=== PATIENT | female | born 1985 | race African-American/Black ===

== ENCOUNTER 2016-06-12 12:56 | Observation (INO) | payer OTHER ==
[~2016-06-12] VITALS: Ht 162.6 cm; Wt 73.5 kg
--- NOTE | 2016-06-12 13:13 | Emergency Room Report ---
History of Present Illness General Chief Complaint: Abdominal Pain Source: Patient Present Illness HPI Patient presents emergency department today complaining of abdominal discomfort. Patient states that she has a history of gallstones and went to see her surgeon for evaluation and possible surgery. But she develop worsening pelvic pain and was sent here for further evaluation by general surgery. She denies any fever. She does complain of some epigastric discomfort eversion chills sensation. Denies any vomiting. States that she does have dysuria and suprapubic discomfort.No other modifying factors. No other associated signs and symptoms. No other complaints were noted. Symptoms noted to be moderate. Allergies: Uncoded Allergies: CYANOCOBALAMIN (Allergy, Unknown, 06/12/16) VITAMIN B12 (Allergy, Unknown, 06/12/16) Patient History Past Medical History: other - colitis, gallstones Past Surgical History: Pertinent Family History: none Social History: Denies: alcohol use, drug use, smoking Last Menstrual Period: 05/14/2016 Reviewed Nursing Documentation: PMH: Agreed, PSxH: Agreed Nursing Documentation-PMH Past Medical History: No History, Except For Hx Gastrointestinal Problems: Yes - Colitis, gallstone History Of Psychiatric Problem: Yes - Bipolar Review of Systems All Other Systems: negative except mentioned in HPI Physical Exam Vital Signs Date Time Temp Pulse Resp B/P Pulse Ox O2 Delivery O2 Flow Rate FiO2 06/12/16 12:51 97.7 91 14 112/70 100 Room Air Sp02 EP Interpretation: reviewed, normal General Appearance: alert, moderate distress Head: atraumatic ENT: normal ENT inspection, hearing grossly normal, normal voice Neck: normal inspection, full range of motion, supple, no bony tend Respiratory: normal inspection, lungs clear, normal breath sounds, no respiratory distress, no retraction, no wheezing Cardiovascular #1: regular rate, rhythm, no edema Gastrointestinal: normal inspection, normal bowel sounds, soft, no guarding, no hernia, other - tender suprapubic Genitourinary: no CVA tenderness Musculoskeletal: normal inspection, back normal, normal range of motion Neurologic: normal inspection, alert, responsive, speech normal Psychiatric: anxious Skin: normal inspection, normal color, no rash Medical Decision Making Diagnostic Impression: Primary Impression: Pelvic pain ER Course Patient presents to the emergency department today complaining of pelvic pain. Differential diagnoses include acute ruptured ovarian cysts, ectopic , ovarian torsion, dysfunctional uterine bleeding, ovarian mass just to name a few.Given the severity of the patient's presentation I felt this is a highly complex patient. This patient required extensive workup. I will sign this case out to Dr. Gomez for final disposition. Last Vital Signs Date Time Temp Pulse Resp B/P Pulse Ox O2 Delivery O2 Flow Rate FiO2 06/12/16 12:51 97.7 91 14 112/70 100 Room Air SANDY CARDENAS M.D. Jun 12, 2016 13:13
[2016-06-12] MEDS ORDERED: Morphine Sulfate 4mg/ml Inj IVP ONE (13:15)
[2016-06-12 13:31] LABS: BASOPHILS % (AUTO) 1.4 % (0.0-2.0); EOSINOPHILS % (AUTO) 2.1 % (0.0-3.0); LYMPHOCYTES % (AUTO) 38.3 % (20.0-45.0); MEAN CORPUSCULAR HEMOGLOBIN 30.1 PG (27.0-31.0); MEAN CORPUSCULAR HGB CONC 32.9 G/DL (32.0-36.0); MEAN CORPUSCULAR VOLUME 92 FL (80-99); MEAN PLATELET VOLUME 7.2 FL (6.5-10.1); MONOCYTES % (AUTO) 5.1 % (1.0-10.0); NEUTROPHILS % (AUTO) 53.1 % (45.0-75.0); PLATELET COUNT 268 K/UL (150-450); RED BLOOD COUNT 4.36 M/UL (4.20-5.40); RED CELL DISTRIBUTION WIDTH 13.3 % (11.6-14.8); WHITE BLOOD COUNT 8.3 K/UL (4.8-10.8)
[2016-06-12 13:35] LABS: APPEARANCE,URINE CLEAR; KETONES,URINE NEGATIVE (NEGATIVE); LEUKOCYTE ESTERASE ,URINE NEGATIVE (NEGATIVE); NITRITE,URINE NEGATIVE (NEGATIVE); PH,URINE 7 (4.5-8.0); PROTEIN,URINE NEGATIVE (NEGATIVE); UROBILINOGEN,URINE NORMAL MG/DL (0.0-1.0)
[2016-06-12 13:50] LABS: ALANINE AMINOTRANSFERASE 9 U/L (3-33); ALBUMIN/GLOBULIN RATIO 1.5 (1.0-2.7); ANION GAP 17 (5-15); ASPARTATE AMINO TRANSFERASE 11 U/L (5-40); CALCIUM 8.8 mg/dL (8.6-10.2); CARBON DIOXIDE 21 mEQ/L (20-30); CHLORIDE 99 mEQ/L (98-107); CREATININE 0.7 mg/dL (0.5-0.9); GLOMERULAR FILTRATION RATE > 60 mL/min (>60); HEMOLYSIS 9; LIPASE 21 U/L (< 60); POTASSIUM 4.2 mEQ/L (3.4-4.9); SODIUM 137 mEQ/L (135-145); TOTAL PROTEIN 6.6 g/dL (6.6-8.7)
[2016-06-12 14:00] VITALS: BP 130/81
--- NOTE | 2016-06-12 14:51 | Diagnostic Imaging Report ---
Clinical Indication: PAIN abdominal discomfort, worsening pelvic pain, dysuria, suprapubic discomfort Technique: No oral contrast utilized, per emergency room physician request IV administration nonionic contrast. Venous phase spiral acquisition obtained through the abdomen and pelvis. Multiplanar reconstructions were generated. Total dose length product a 64 mGycm. CTDIvol(s) 16 mGy. Dose reduction achieved using automated exposure control Comparison: None Findings: Lack of oral contrast severely limits evaluation of the GI tract There is a cystic mass within the pelvis, the largest component of which is in the right-sided pelvis posterolateral to the uterus within the right adnexal region which measures approximately 9 x 4 cm, possibly crossing the midline and communicating with a component to the left of the uterus. This demonstrates a perceptible wall There there are what appear to be other thickwalled cystic locules, but these may actually be adherent loops of unopacified small bowel. There is slight hazy infiltration of the pelvic and lower abdominal fat surrounding and cephalad to the lesion. The appendix is normal. There is no evidence of diverticulosis or diverticulitis. No small bowel distention. No free intraperitoneal air or fluid. The distal esophagus, stomach, duodenum are unremarkable. The gallbladder is nondistended. No radiopaque calculi are demonstrated, but there are several rounded structures that are isoattenuating of fluid and may represent radiolucent calculi. Is also suggestion of slight gallbladder wall edema No biliary ductal dilatation. The liver demonstrates a 19 mm low attenuating mass at the boundary of segment 7 and 8 near the hepatic venous confluence which demonstrates a single focus of nodular peripheral enhancement. There is a tiny subcentimeter low-attenuation lesion at the dome of segment 8. The pancreas, spleen, adrenals, kidneys are unremarkable. No mesenteric or retroperitoneal mass or adenopathy. The bladder is unremarkable. The included lung bases are clear. The bones are unremarkable. Impression: Complex cystic lesion in the pelvis, primarily posterior and to the right of the uterus, possibly also communicating with a tubular area extending across the midline. Uncertain as to whether this is unilocular or multilocular, as there are multiple adjacent fluid-filled areas that appear to be locules but could very well just be unopacified fluid-filled small bowel loops. Consider repeat exam with full oral contrast preparation to clarify. There is also some infiltration of the adjacent upper pelvic and lower mesenteric root fat. Suspect findings represent a tubo-ovarian abscess. Also in the differential is cystic ovarian neoplasm. Consider pelvic ultrasound to further characterize Nondistended gallbladder. No definite radiopaque calculi. There is a suggestion of multiple rounded structures which are isoattenuating fluid, may represent radiolucent calculi. There is also questionable gallbladder wall edema. Consider abdominal ultrasound for better characterization 19 mm hypoattenuating lesion in the dome of the right hepatic lobe. Single focus of peripheral nodular enhancement raises possibility that this is a benign hemangioma, but this cannot be stated with certainty. Consider MRI or CT with hemangioma protocol to clarify Subcentimeter lesion within the dome of the liver, too small to characterize, most likely a benign simple cyst or bile hamartomas. No further followup necessary The CT scanner at [facility] is accredited by the [employer] and the scans are performed using protocols designed to limit radiation exposure to as low as reasonably achievable to attain images of sufficient resolution adequate for diagnostic evaluation.
[2016-06-12] MEDS ORDERED: Ketorolac 30mg Inj IV ONE (15:45)
[2016-06-12] MEDS ORDERED: NORCO 5-325 TA1 EACH ORAL (15:51)
[2016-06-12 16:00] VITALS: BP 108/65
[2016-06-12] MEDS ORDERED: Tubing IV Cassette IV ONE ×2 (17:29→18:27)
[2016-06-12] MEDS ORDERED: NS 55 ML IV ONE ×2 (17:29→18:27)
[2016-06-12] MEDS ORDERED: cefTRIAXone 1 GM in NS 55 ML IVPB ONE (17:30)
[2016-06-12 18:15] VITALS: BP 112/70
[2016-06-12] MEDS ORDERED: DiphenhydrAMINE 50mg/ml Inj ONE (18:27)
[2016-06-12] MEDS ORDERED: HYDROmorphone 1mg/ml Carpuject ONE (18:27)
[2016-06-12] MEDS ORDERED: HYDROmorphone 1 MG, DiphenhydrAMINE 25 MG in NS 55 ML IVPB ONE (18:30)
[2016-06-12 20:27] VITALS: BP 105/56
[2016-06-12] MEDS: HYDROmorphone 1mg/ml Carpuject IVP PRN (21:16)
[2016-06-12] MEDS: Piperacillin/Tazobactam 3.375 GM in D5W 110 ML IVPB SCH (21:16)
[2016-06-13] VITALS: BP 106/66
[2016-06-13] MEDS: HYDROmorphone 1mg/ml Carpuject IVP PRN ×4 (02:30→15:24)
[2016-06-13 03:55] VITALS: BP 99/56
[2016-06-13] MEDS: Piperacillin/Tazobactam 3.375 GM in D5W 110 ML IVPB SCH ×2 (05:23→14:03)
[2016-06-13 06:01] VITALS: BP 110/69
[2016-06-13 07:16] LABS: ANION GAP 11 (5-15); CALCIUM 8.4 mg/dL (8.6-10.2); CARBON DIOXIDE 26 mEQ/L (20-30); CHLORIDE 102 mEQ/L (98-107); CREATININE 0.6 mg/dL (0.5-0.9); GLOMERULAR FILTRATION RATE > 60 mL/min (>60); HEMOLYSIS 5; POTASSIUM 4.1 mEQ/L (3.4-4.9); SODIUM 139 mEQ/L (135-145)
[2016-06-13 07:35] LABS: BASOPHILS % (AUTO) 1.3 % (0.0-2.0); LYMPHOCYTES % (AUTO) 42.7 % (20.0-45.0); MEAN CORPUSCULAR HEMOGLOBIN 30.8 PG (27.0-31.0); MEAN CORPUSCULAR HGB CONC 32.9 G/DL (32.0-36.0); MEAN CORPUSCULAR VOLUME 94 FL (80-99); MEAN PLATELET VOLUME 6.9 FL (6.5-10.1); MONOCYTES % (AUTO) 6.1 % (1.0-10.0); NEUTROPHILS % (AUTO) 46.8 % (45.0-75.0); PLATELET COUNT 224 K/UL (150-450); RED BLOOD COUNT 4.13 M/UL (4.20-5.40); RED CELL DISTRIBUTION WIDTH 13.3 % (11.6-14.8); WHITE BLOOD COUNT 6.9 K/UL (4.8-10.8)
[2016-06-13 08:21] VITALS: BP 125/79
--- NOTE | 2016-06-13 10:38 | Diagnostic Imaging Report ---
Indications: Pelvic pain, LMP unknown or not given Technique: Transabdominal and transvaginal real-time grayscale and duplex Doppler imaging of the pelvis was performed. Findings: Comparison: CT abdomen pelvis earlier today Uterus measures 8.6 x 5.3 x 4.5cm. It demonstrates normal contour and myometrial echotexture without focal abnormality. The endometrial complex measures 11 mm in diameter. It is unremarkable in appearance without obvious focal abnormality. Cervix unremarkable. Minimal free fluid is present in the cul-de-sac. Right ovary measures 3.1 x 1.8 x 3.1 cm. it contains multiple peripheral follicles. Duplex Doppler imaging demonstrates normal blood flow. Complex, multiseptated cystic structure resides adjacent to the right ovary, 5.2 x 4.6 x 8.3 cm. It demonstrates no intrinsic blood flow on color Doppler imaging. Left ovary measures 4.2 x 3.3 x 1.9 cm. It contains multiple peripheral follicles.. Duplex Doppler imaging demonstrates normal blood flow. No extra-ovarian abnormality is seen. IMPRESSION: 8.3 cm complex, multiseptated cystic structure adjacent to right ovary, nonspecific. Diagnostic possibilities include physiologic paraovarian cyst, hydro/hemato/pyosalpinx, tubo-ovarian abscess, less likely ectopic , endometrioma, neoplasm. Correlate with serial serum quantitative beta hCG levels. Minimal pelvic free fluid, nonspecific, may be secondary to leak of above Unremarkable uterus, left ovary
[2016-06-13 12:21] VITALS: BP 112/72
--- NOTE | 2016-06-13 14:39 | Emergency Room Report ---
History of Present Illness General Chief Complaint: Abdominal Pain Source: Patient Present Illness Allergies: Coded Allergies: CYANOCOBALAMIN (VITAMIN B12) (Unverified Allergy, Unknown, 06/12/16) Uncoded Allergies: CYANOCOBALAMIN (Allergy, Unknown, 06/12/16) VITAMIN B12 (Allergy, Unknown, 06/12/16) Patient History Last Menstrual Period: 05/14/2016 Nursing Documentation-PM Past Medical History: No History, Except For Hx Hypertension: Yes Hx Asthma: Yes Hx Cancer: No Hx Gastrointestinal Problems: Yes - Colitis, gallstone History Of Psychiatric Problem: Yes - Bipolar Hx Neurological Problems: No Physical Exam Vital Signs Date Time Temp Pulse Resp B/P Pulse Ox O2 Delivery O2 Flow Rate FiO2 06/12/16 12:51 97.7 91 14 112/70 100 Room Air Medical Decision Making Diagnostic Impression: Primary Impression: Pelvic pain Additional Impressions: Complex ovarian cyst TOA (tubo-ovarian abscess) ER Course Please refer to the initial note for the history exam and presentation Initial CT does not reveal any obvious appendicitis however there is significant ovarian mass and cyst noted There was also a concern of findings for tubo-ovarian abscess Ultrasound have been ordered please note the delay in ultrasound There was apparently a procedure being performed Patient required multiple repeat pain medications in the emergency room Given the CAT scan findings [facility] was contacted and patient required admission Labs Test 06/12/16 13:10 06/13/16 05:30 White Blood Count 8.3 K/UL (4.8-10.8) 6.9 K/UL (4.8-10.8) Red Blood Count 4.36 M/UL (4.20-5.40) 4.13 M/UL (4.20-5.40) Hemoglobin 13.1 G/DL (12.0-16.0) 12.7 G/DL (12.0-16.0) Hematocrit 40.0 % (37.0-47.0) 38.7 % (37.0-47.0) Mean Corpuscular Volume 92 FL (80-99) 94 FL (80-99) Mean Corpuscular Hemoglobin 30.1 PG (27.0-31.0) 30.8 PG (27.0-31.0) Mean Corpuscular Hemoglobin Concent 32.9 G/DL (32.0-36.0) 32.9 G/DL (32.0-36.0) Red Cell Distribution Width 13.3 % (11.6-14.8) 13.3 % (11.6-14.8) Platelet Count 268 K/UL (150-450) 224 K/UL (150-450) Mean Platelet Volume 7.2 FL (6.5-10.1) 6.9 FL (6.5-10.1) Neutrophils (%) (Auto) 53.1 % (45.0-75.0) 46.8 % (45.0-75.0) Lymphocytes (%) (Auto) 38.3 % (20.0-45.0) 42.7 % (20.0-45.0) Monocytes (%) (Auto) 5.1 % (1.0-10.0) 6.1 % (1.0-10.0) Eosinophils (%) (Auto) 2.1 % (0.0-3.0) 3.0 % (0.0-3.0) Basophils (%) (Auto) 1.4 % (0.0-2.0) 1.3 % (0.0-2.0) Urine Color Pale yellow Urine Appearance Clear Urine pH 7 (4.5-8.0) Urine Specific [place] 1.005 (1.005-1.035) Urine Protein Negative (NEGATIVE) Urine Glucose (UA) Negative (NEGATIVE) Urine Ketones Negative (NEGATIVE) Urine Occult Blood Negative (NEGATIVE) Urine Nitrite Negative (NEGATIVE) Urine Bilirubin Negative (NEGATIVE) Urine Urobilinogen Normal MG/DL (0.0-1.0) Urine Leukocyte Esterase Negative (NEGATIVE) Urine HCG, Qualitative Negative Sodium Level 137 mEQ/L (135-145) 139 mEQ/L (135-145) Potassium Level 4.2 mEQ/L (3.4-4.9) 4.1 mEQ/L (3.4-4.9) Chloride Level 99 mEQ/L (98-107) 102 mEQ/L (98-107) Carbon Dioxide Level 21 mEQ/L (20-30) 26 mEQ/L (20-30) Anion Gap 17 (5-15) 11 (5-15) Blood Urea Nitrogen 7 mg/dL (7-23) 6 mg/dL (7-23) Creatinine 0.7 mg/dL (0.5-0.9) 0.6 mg/dL (0.5-0.9) Estimat Glomerular Filtration Rate > 60 mL/min (>60) > 60 mL/min (>60) Glucose Level 102 mg/dL (74-106) 74 mg/dL (74-106) Calcium Level 8.8 mg/dL (8.6-10.2) 8.4 mg/dL (8.6-10.2) Total Bilirubin 0.6 mg/dL (0.0-1.2) Aspartate Amino Transf (AST/SGOT) 11 U/L (5-40) Alanine Aminotransferase (ALT/SGPT) 9 U/L (3-33) Alkaline Phosphatase 60 U/L (35-104) Total Protein 6.6 g/dL (6.6-8.7) Albumin 4.0 g/dL (3.5-5.2) Globulin 2.6 g/dL Albumin/Globulin Ratio 1.5 (1.0-2.7) Lipase 21 U/L (< 60) CT/MRI/US Diagnostic Results CT/MRI/US Diagnostic Results : Impression CT abdomen pelvisImpression: Complex cystic lesion in the pelvis, primarily posterior and to the right of the uterus, possibly also communicating with a tubular area extending across the midline. Uncertain as to whether this is unilocular or multilocular, as there are multiple adjacent fluid-filled areas that appear to be locules but could very well just be unopacified fluid-filled small bowel loops. Consider repeat exam with full oral contrast preparation to clarify. There is also some infiltration of the adjacent upper pelvic and lower mesenteric root fat. Suspect findings represent a tubo-ovarian abscess. Also in the differential is cystic ovarian neoplasm. Consider pelvic ultrasound to further characterize Nondistended gallbladder. No definite radiopaque calculi. There is a suggestion of multiple rounded structures which are isoattenuating fluid, may represent radiolucent calculi. There is also questionable gallbladder wall edema. Consider abdominal ultrasound for better characterization 19 mm hypoattenuating lesion in the dome of the right hepatic lobe. Single focus of peripheral nodular enhancement raises possibility that this is a benign hemangioma, but this cannot be stated with certainty. Consider MRI or CT with hemangioma protocol to clarify Subcentimeter lesion within the dome of the liver, too small to characterize, most likely a benign simple cyst or bile hamartomas. No further followup necessary pelvic ultrasoundIMPRESSION: 8.3 cm complex, multiseptated cystic structure adjacent to right ovary, nonspecific. Diagnostic possibilities include physiologic paraovarian cyst, hydro/hemato/pyosalpinx, tubo-ovarian abscess, less likely ectopic , endometrioma, neoplasm. Correlate with serial serum quantitative beta hCG levels. Minimal pelvic free fluid, nonspecific, may be secondary to leak of above Unremarkable uterus, left ovary Last Vital Signs Date Time Temp Pulse Resp B/P Pulse Ox O2 Delivery O2 Flow Rate FiO2 06/13/16 12:21 97.3 63 20 112/72 99 Room Air Status: improved Disposition: ADMITTED INPATIENT Condition: Serious Referrals: NON PHYSICIAN (PCP) GRACIELA SUGGS D.O. Jun 13, 2016 14:39
[2016-06-13 16:11] VITALS: BP 111/68
[2016-06-13] MEDS ORDERED: DIFLUCAN150 MG PO (16:29)
[2016-06-13] MEDS ORDERED: DOXY 100100 MG PO (16:29)
[2016-06-13] MEDS ORDERED: Tubing IV Secondary IV ONE (17:39)
--- NOTE | 2016-06-13 23:58 | History and Physical Report ---
DATE OF ADMISSION: 06/12/2016 HISTORY OF PRESENT ILLNESS: This is a young female, who came to the hospital with some discomfort. She has a history of cholelithiasis. She had worsening of the pain. She was seen in the emergency room and admitted to the hospital with a diagnosis of possible tubo-ovarian abscess. PAST MEDICAL HISTORY: , colitis, and cholelithiasis. ALLERGIES: Listed to cyanocobalamin, vitamin B12, . REVIEW OF SYSTEMS: Denies any headaches, hematemesis, or melena. PHYSICAL EXAMINATION: GENERAL: Reveals a young female. VITAL SIGNS: Blood pressure is 120/70, heart rate 94, respirations , she is afebrile. HEENT: Unremarkable. CHEST: Clear breath sounds bilaterally. ABDOMEN: Soft. EXTREMITIES: There is no edema. NEUROLOGIC: Nonfocal . LABORATORY AND DIAGNOSTIC DATA: Lab testing shows normal CBC and BMP. Urinalysis is negative. IMPRESSION: 1. Bipolar disorder. 2. Previous section. 3. History of colitis. 4. History of cholelithiasis. DISCUSSION: I suspect her pain may represent PID. . We will discharge home today on p.o. Diflucan and doxycycline. follow up. George Peoples M.D. DR: Melissa JOB#: [id number] CC:
--- NOTE | 2016-06-14 11:48 | Consultation ---
DATE OF CONSULTATION: 06/13/2016 HISTORY OF PRESENT ILLNESS: The patient is a 31-year-old who was admitted through the emergency room with a chief complaint of low abdominal pain. Her last menstrual period on 05/11/2016. Today, the patient complaining of low abdominal pain, but much less than on admission. She also feels some nausea, but she denies vomiting. She was having normal bowel movement and no problems with urination. GYNECOLOGICAL HISTORY: Menarche age 14, 4 to 5 days. She denies pelvic inflammatory disease. She denies STD. She was with two children. PREVIOUS MEDICAL HISTORY: Include cholelithiasis and colitis. HOSPITALIZATION FOR SURGERY: Delivery. SOCIAL HISTORY: She does not smoke. Alcohol occasionally. REVIEW OF SYSTEMS: Noncontributory. PHYSICAL EXAMINATION: GENERAL: Revealed a well-developed and well-nourished female, in no acute distress. VITAL SIGNS: Stable. Blood pressure 110/50, respirations 16, and temperature 96.8. HEENT: Head normocephalic and atraumatic. SKIN: Normal color. No visible lesions on the skin. NECK: Supple without thyromegaly. BREASTS: Nontender. No masses appreciated. Nipples without discharge. ABDOMEN: Soft. Tenderness over lower quadrant, but rebound tenderness negative. BACK: Costovertebral angle nontender. EXTREMITIES: No edema. No erythema. PELVIC: Revealed [place] urethral, [place] glands within normal limits. Vulva, no lesions. Vagina, normal developed, no lesions. Cervix closed. Uterus retroflexed. Adnexa, tender on the right with a pelvic mass on the right approximately 8 cm and on the left mild tenderness. Uterus retroflexed and normal size. LABORATORY DATA: Her WBC today 6.9, hemoglobin 12.7, hematocrit 38.7. Her electrolytes normal. Her urine test is negative. Her CT scan revealed presence of the right adnexal mass approximately 8.3 cm. It is a complex multifaceted structure. No intrinsic blood flow on color Doppler imaging. Right ovary, normal size. Left ovary as well normal size and both ovaries was good. Normal blood flow on duplex Doppler. The same finding on vaginal ultrasound and uterus normal size on ultrasound without abnormalities. IMPRESSION: 1. Pelvic mass. 2. Abdominal pain. DIFFERENTIAL DIAGNOSES: 1. Tubo-ovarian abscess. 2. Physiologic . 3. Endometrioma. 4. Neoplasm. PLAN: Continue treatment with antibiotics, and considering patient's stable condition she can be placed on oral antibiotic doxycycline 100 mg twice a day for 10 days and Diflucan 150 mg #2 q. 72 hours. She has to make an appointment with Gynecology, . and will be under his close observation and treatment. Farzana Irving M.D. DR: ASHLEY JOB#: [id number] CC:
--- NOTE | 2016-06-14 19:36 | Discharge Summary ---
Discharge Summary Hospital Course Date of Admission Jun 12, 2016 at 17:37 Date of Discharge Jun 13, 2016 at 17:40 Admitting Diagnosis complex ovarian cyst JONNIE Abdi is a 31 year old female who was admitted on Jun 12, 2016 at 17: 37 for Complex Ovarian Cyst Hospital Course [id number] Discharge Discharge Disposition Patient was discharged to Home (01) Discharge Diagnoses: Niharika Erickson NP Jun 14, 2016 19:36
--- NOTE | 2016-06-15 12:07 | Discharge Summary 2 SIG ---
DATE OF ADMISSION: 06/12/2016 DATE OF DISCHARGE: 06/13/2016 [employer] OPERATOR: Farzana Irving M.D. BRIEF HOSPITAL COURSE: The patient is a 31-year-old female, who came to the hospital for abdominal discomfort. She has history of cholelithiasis and has had worsening abdominal pain. She was seen in the emergency room and admitted with diagnosis of possible tubo-ovarian abscess. Dr. Irving was consulted. Last menstrual period was on 05/11/2016 and had some nausea, but denied vomiting. There was no dysuria and no problems with bowels. Pelvic examination showed vagina was normal developed with no lesions. Cervix is closed. Uterus is retroflexed. Adnexa tender on the right with pelvic mass on the right approximately 8 cm on the left mild tenderness. Hemoglobin is 6.9. Urine test was negative. CT scan revealed presence of right adnexal mass approximately 8.3 cm it is a complex multifaceted structure. No intrinsic blood flow on color Doppler imaging. Right ovary showed normal size, left ovary normal size and both ovaries were good with normal blood flow on duplex Doppler. She was given antibiotics and was placed on oral antibiotic doxycycline b.i.d., advised to complete for 10 days and was given Diflucan 150 mg q.72 hours x2. She was discharged and advised to follow up with outpatient Gynecology. FINAL DIAGNOSES: 1. Tubo-ovarian abscess. 2. Possible pelvic inflammatory disease. 3. Bipolar disorder. 4. Previous section. 5. History of colitis. 6. History of cholelithiasis. DISPOSITION: The patient was discharged p.o. Diflucan and doxycycline to follow up with Gynecology as outpatient. George Peoples M.D. I have been assigned to dictate discharge summary on this account and I was not involved in the patient's management. Niharika Erickson N.P. DR: Colette JOB#: [id number] CC: MELISSA
== END 2016-06-13 17:40 | disposition home or self-care (01) ==
LOC: EDBD 12:56 → EMR 13:40 → INTOOBSV 17:37 → 4W 17:37 → EDBEDREQ 18:24
DX: N83.9 Noninflammatory disorder of ovary, fallopian tube and broad ligament, unspecified (principal); F31.9 Bipolar disorder, unspecified; I10 Essential (primary) hypertension; J45.909 Unspecified asthma, uncomplicated; Z87.19 Personal history of other diseases of the digestive system; Z88.8 Allergy status to other drugs, medicaments and biological substances; Z91.048 Other nonmedicinal substance allergy status
CPT/HCPCS: 36415; 74177; 76830; 76856; 80048; 80053; 81003; 81025; 83690; 84703; 85025; 86304; 96360; 96361; 96365; 96366; 96367; 96368; 96374; 96376; 99285; G0378; J0696; J1170; J1200; J1885; J2270; J2405; J2543; Q9967